=== PATIENT | female | born 1930 | race Caucasian/White ===

== ENCOUNTER 2016-09-12 06:22 | Emergency (ER) | payer MEDICARE ==
[~2016-09-12] VITALS: Ht 157.5 cm; Wt 69.1 kg
[~2016-09-12 06:22] MED LIST: ACET500T3 PO; AMLO5TAB2 PO; CYAN1000P IM; FURO1TAB62 PO; LEVO.1 PO; LORA-475 PO; METO50TA PO; MULT-6 PO; POTA-243 PO; PRAS10TA PO; PREV15CA15 PO; VITA200012 PO
[2016-09-12 06:54] VITALS: BP 135/76; PULSE 70; RESP 18; O2SAT 93
--- NOTE | 2016-09-12 07:25 | PD ---
HPI Chief Complaint: Pain: Acute or Chronic Time Seen by Provider: 07:17 Travel History International Travel<30 days: No Contact w/Intl Traveler<30days: No Traveled to known affect area: No History of Present Illness HPI This is an 86-year-old female who presents to the emergency department having fallen on August 28. She says she's been having some trouble with her gait over the past several months and sometimes she gets up too quickly and this causes her to fall. She came to the emergency department at that time because she was having some back pain and rib pain. She had an x-ray of her ribs as well as her femur which were reassuring and the patient had labs and was discharged home. She says that intermittently since then she's been having flareups of severe pain on the left side. She says last night it was keeping her up from sleep and she wasn't able to sleep without laying on her right side which is unusual for her. She says the pain is mostly in the left abdomen and underneath her ribs radiating to the back and sometimes crossing over and going down her right lower extremity. The pain is worse when she moves or walks. She does say she's been having frequent urination but denies any dysuria or fevers. She is concerned that she may have an internal injury. 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 MANJEET.) Appendectomy: Yes Cholecystectomy: Yes Eye Surgery: Yes (RIGHT CATARACT EXTRACT) Genitourinary Surgery: Yes (RENAL STENT ) Gynecologic Surgery: Yes (UTERINE SUSPENSION 1956) Pacemaker: No Other Surgery: Yes (CARDIAC STENTS 10 UTERINE SUSPENSION APPENDECTOMY CHOLESTECTOMY) Social History Alcohol Use: Yes (1-2 drinks daily) Tobacco Use: No Substance Use: No Allergies-Medications (Allergen,Severity, Reaction): Coded Allergies: Iodine (Verified Allergy, Unknown, 09/12/16) Prednisone (Verified Adverse Reaction, Severe, ANXIETY, 09/12/16) Uncoded Allergies: ANTIDEPRESSANTS (Adverse Reaction, Unknown, 02/12/14) Reported Meds & Prescriptions Reported Meds & Active Scripts Active Acetaminophen 500 Mg Tab 500 Mg PO Q6H PRN Reported Centrum (Multiple Vitamins W/ Minerals) 1 Tab 1 Tab PO DAILY Ativan (Lorazepam) 2 Mg Tab 2 Mg PO HS Prevacid (Lansoprazole) 15 Mg Capdr 15 Mg PO DAILY Klor-Con 10 (Potassium Chloride) 10 Meq Tab 10 Meq PO EVERY OTHER DAY PRN Lasix (Furosemide) 20 Mg Tab 20 Mg PO EVERY OTHER DAY PRN Synthroid (Levothyroxine Sodium) 100 Mcg Tab 100 Mcg PO DAILY BRAND MEDICALLY NECESSARY Effient (Prasugrel) 10 Mg Tab 10 Mg PO DAILY Metoprolol Tartrate 50 Mg Tab 50 Mg PO BID Amlodipine (Amlodipine Besylate) 5 Mg Tab 5 Mg PO DAILY Review of Systems Except as stated in HPI: all other systems reviewed are Neg Physical Exam Narrative GENERAL:Well appearing, no acute distress SKIN: Warm and dry. HEAD: Atraumatic. Normocephalic. EYES: Pupils equal and round. No injection or drainage. ENT: Moist mucous membranes NECK: Trachea midline. CARDIOVASCULAR: Regular rate and rhythm. No murmur appreciated. RESPIRATORY: Clear to auscultation. Breath sounds equal bilaterally. GASTROINTESTINAL: Abdomen soft, tender to palpation in the left upper and left lower quadrants with no rebound or guarding. MUSCULOSKELETAL: No obvious deformities. Painless range of motion of both hips. No focal thoracic or lumbar tenderness. NEUROLOGICAL: Awake and alert. No obvious cranial nerve deficits. Moving all extremities. PSYCHIATRIC: Appropriate mood and affect; insight and judgment normal. Data Data Last Documented VS Vital Signs Date Time Temp Pulse Resp B/P Pulse Ox O2 Delivery O2 Flow Rate FiO2 09/12/16 06:54 70 18 135/76 93 Room Air Orders Complete Blood Count With Diff (09/12/16 07:17) Basic Metabolic Panel (Bmp) (09/12/16 07:17) Urinalysis - C+S If Indicated (09/12/16 07:17) Ct Thorax/ Chest Wo Iv Contras (09/12/16 ) Ct Abd/Pel W/O Iv Contrast (09/12/16 ) Labs Laboratory Tests Test 09/12/16 07:35 White Blood Count 5.6 TH/MM3 Red Blood Count 5.47 MIL/MM3 Hemoglobin 15.3 GM/DL Hematocrit 46.2 % Mean Corpuscular Volume 84.4 FL Mean Corpuscular Hemoglobin 28.0 PG Mean Corpuscular Hemoglobin 33.1 % Concent Red Cell Distribution Width 13.9 % Platelet Count 228 TH/MM3 Mean Platelet Volume 7.8 FL Neutrophils (%) (Auto) 54.6 % Lymphocytes (%) (Auto) 31.1 % Monocytes (%) (Auto) 10.0 % Eosinophils (%) (Auto) 3.5 % Basophils (%) (Auto) 0.8 % Neutrophils # (Auto) 3.1 TH/MM3 Lymphocytes # (Auto) 1.7 TH/MM3 Monocytes # (Auto) 0.6 TH/MM3 Eosinophils # (Auto) 0.2 TH/MM3 Basophils # (Auto) 0.0 TH/MM3 CBC Comment DIFF FINAL Differential Comment Urine Color LIGHT-YELLOW Urine Turbidity CLEAR Urine pH 7.5 Urine Specific [place] 1.005 Urine Protein NEG mg/dL Urine Glucose (UA) NEG mg/dL Urine Ketones NEG mg/dL Urine Occult Blood NEG Urine Nitrite NEG Urine Bilirubin NEG Urine Urobilinogen LESS THAN 2.0 MG/DL Urine Leukocyte Esterase NEG Urine RBC 1 /hpf Urine WBC 3 /hpf Urine Squamous Epithelial <1 /hpf Cells Microscopic Urinalysis Comment CULT NOT INDICATED Sodium Level 143 MEQ/L Potassium Level 3.7 MEQ/L Chloride Level 107 MEQ/L Carbon Dioxide Level 25.8 MEQ/L Anion Gap 10 MEQ/L Blood Urea Nitrogen 10 MG/DL Creatinine 0.94 MG/DL Estimat Glomerular Filtration 56 ML/MIN Rate Random Glucose 100 MG/DL Calcium Level 8.9 MG/DL [facility] Medical Decision Making Medical Screen Exam Complete: Yes Emergency Medical Condition: Yes Interpretation(s) No tachycardia, normotensive No leukocytosis Electrolytes within normal limits Urinalysis: No infection CT of the chest and abdomen pelvis demonstrates no obvious compression fracture , no displaced rib fracture and no other etiology of the patient's pain Differential Diagnosis Rib fracture, pneumothorax, compression fracture, splenic laceration, abdominal wall contusion Narrative Course This is an 86-year-old female who presents to the emergency department with pain on her left side ever since a fall over a week ago. She was placed on a monitor and an IV was established. Labs are obtained which were all reassuring including a normal urinalysis. Given the vague description of the patient's symptoms a CT of the chest abdomen pelvis was obtained which is all reassuring. She does have diffuse advanced osteopenia of the vertebrae and perhaps this is the etiology of some of her symptoms. Patient was discharged home with tramadol and asked to follow-up with a primary care physician. Diagnosis Primary Impression: Osteopenia Additional Impression: Back pain Qualified Code: M54.9 - Other acute back pain Additional Instructions: If you develop weakness of her legs, difficulty walking, numbness of your legs or your genital or rectal area, loss of your bowel or bladder, or difficulty urinating return to the emergency department immediately. Followup with your primary care physician in one week if your symptoms have not improved. Med/Other Pt SpecificInfo: Prescription(s) given Scripts Tramadol 50 Mg Tab50 Mg PO Q6H PRN (PAIN) #15 TAB Ref 0 Prov:Aisha Zavala MD 09/12/16 Disposition: 01 DISCHARGE HOME Condition: Stable Aisha Zavala MD Sep 12, 2016 07:25
[2016-09-12 07:52] LABS: AUTOMATED NEUTROPHIL # 3.1 TH/MM3 (1.8-7.7); BASOPHIL % 0.8 % (0.0-2.0); EOSINOPHIL # 0.2 TH/MM3 (0-0.4); EOSINOPHIL % 3.5 % (0.0-4.0); HEMATOCRIT 46.2 % (35.0-46.0); HEMO FLAGS DIFF FINAL; LYMPH % 31.1 % (9.0-44.0); LYMPHOCYTE # 1.7 TH/MM3 (1.0-4.8); MEAN CELL VOLUME 84.4 FL (80.0-100.0); MEAN CORPUSCULAR HGB CONC 33.1 % (32.0-36.0); NEUT % 54.6 % (16.0-70.0); PLATELET COUNT 228 TH/MM3 (150-450); RED BLOOD COUNT 5.47 MIL/MM3 (4.00-5.30); RED CELL DISTRIBUTION WIDTH 13.9 % (11.6-17.2); WHITE BLOOD COUNT 5.6 TH/MM3 (4.0-11.0)
[2016-09-12 08:02] LABS: BLOOD, URINE NEG (NEG); COMMENT (UR) CULT NOT INDICATED; CULTURE IF INDICATED CULT NOT INDICATED; GLUCOSE,URINE NEG (NEG); KETONE, URINE NEG (NEG); NITRITE,URINE NEG (NEG); PH, URINE 7.5 (5.0-8.5); SQUAMOUS EPITHELIAL CELL URINE <1 /hpf (0-5); URINE COLOR LIGHT-YELLOW (YELLW/STRAW)
[2016-09-12 08:21] LABS: BICARBONATE 25.8 MEQ/L (21.0-32.0); POTASSIUM 3.7 MEQ/L (3.5-5.1)
--- NOTE | 2016-09-12 08:33 | RADRPT ---
EXAM DATE/TIME: 09/12/2016 07:35 [facility] COMPARISON: No previous studies available for comparison. INDICATIONS: Patient fell last night, complains of left side pain RADIATION DOSE: 16.31 CTDIvol (mGy); Combined studies - Thorax/Abdomen/Pelvis MEDICAL HISTORY: Cardiovascular disease. Hypertension. SURGICAL HISTORY: Appendectomy. Cholecystectomy. ENCOUNTER: Initial ACUITY: 1 day PAIN SCALE: 4/10 LOCATION: Left ribs TECHNIQUE: Volumetric scanning of the chest was performed. Using automated exposure control and adjustment of t he mA and/or kV according to patient size, radiation dose was kept as low as reasonably achievable to obtain optimal diagnostic quality images. FINDINGS: There is no pneumothorax. There is marked coronary artery calcifications with a large hiatal hernia evident. I do not see a displaced rib fracture although osteopenia makes detection of such difficult. There is no axillary adenopathy. There is no mediastinal adenopathy. CONCLUSION: Compensated cardiomegaly. There is no evidence for pneumothorax. I do not see a displaced rib fracture . Angel Luis Frias MD FACR on September 12, 2016 at 8:25 Board Certified Radiologist. This report was verified electronically.
--- NOTE | 2016-09-12 08:36 | RADRPT ---
EXAM DATE/TIME: 09/12/2016 07:35 [facility] COMPARISON: No previous studies available for comparison. INDICATIONS: Patient fell last night and complains of left rib pain ORAL CONTRAST: No oral contrast ingested. RADIATION DOSE: 16.31 CTDIvol (mGy) ; Combined studies - Thorax/Abdomen/Pelvis MEDICAL HISTORY: Hypertension. Cardiovascular disease SURGICAL HISTORY: Appendectomy. Cholecystectomy. ENCOUNTER: Initial ACUITY: 1 day PAIN SCALE: 4/10 LOCATION: Left ribs TECHNIQUE: Volumetric scanning of the abdomen and pelvis was performed. Using automated exposure control and ad justment of the mA and/or kV according to patient size, radiation dose was kept as low as reasonably achievable to obtain optimal diagnostic quality images. FINDINGS: Again seen is the large hiatal hernia. Liver, spleen, pancreas and adrenal glands are unremarkable. Right and left kidneys appear normal. Pelvic contents unremarkable. Review of bone windows reveals diffuse osteopenia. Lucencies are seen in the thoracic and lumbar spi ne, they are probably aggressive osteopenia. I think a metastatic process would be a much more remote conside ration. There is no evidence for a fracture. CONCLUSION: I see no evidence for an acute traumatic injury. 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 Angel Luis Frias MD FACR on September 12, 2016 at 8:26 Board Certified Radiologist. This report was verified electronically.
[2016-09-12] MEDS ORDERED: TRAM50TA PO (08:51)
== END 2016-09-12 09:53 | disposition home or self-care (01) ==
LOC: NEPE 06:22
DX: M19.90 Unspecified osteoarthritis, unspecified site (principal); M54.9 Dorsalgia, unspecified; E78.00 Pure hypercholesterolemia, unspecified; I25.10 Atherosclerotic heart disease of native coronary artery without angina pectoris; K21.9 Gastro-esophageal reflux disease without esophagitis; I10 Essential (primary) hypertension; E03.9 Hypothyroidism, unspecified
CPT/HCPCS: 71250; 74176; 80048; 81001; 85025

== ENCOUNTER 2016-11-21 14:51 | Emergency (ER) | payer MEDICARE ==
[~2016-11-21] VITALS: Ht 157.5 cm; Wt 68.0 kg
[~2016-11-21 14:51] MED LIST changes: -CYAN1000P IM; +TRAM50TA PO; -VITA200012 PO
[2016-11-21 14:54] VITALS: BP 204/95; PULSE 85; RESP 16; TEMP 98.2; O2SAT 97
--- NOTE | 2016-11-21 16:10 | PD ---
HPI Chief Complaint: Fall Time Seen by Provider: 16:00 Travel History International Travel<30 days: No Contact w/Intl Traveler<30days: No Traveled to known affect area: No History of Present Illness HPI 86-year-old female on Plavix presents for evaluation after fall. She reports that yesterday she was sitting barstool when she got her feet tangled in the legs of the barstool and fell, landing on her right side. She doesn't believe that she lost consciousness. She is complaining of right periorbital bruising and right temporal bruising and soft tissue swelling, pain. She also has pain in the lateral right rib cage which is aching and worse with movement or inspiration. Slight neck pain. Denies nausea or vomiting, abdominal pain, injury to the extremities, confusion or amnesia. Denies blurred vision. No other complaints. 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 MANJEET.) Appendectomy: Yes Cholecystectomy: Yes Eye Surgery: Yes (RIGHT CATARACT EXTRACT) Genitourinary Surgery: Yes (RENAL STENT ) Gynecologic Surgery: Yes (UTERINE SUSPENSION 1956) Pacemaker: No Other Surgery: Yes (CARDIAC STENTS 10 UTERINE SUSPENSION APPENDECTOMY CHOLESTECTOMY) Social History Alcohol Use: Yes (1-2 drinks daily) Tobacco Use: No Substance Use: No Allergies-Medications (Allergen,Severity, Reaction): Coded Allergies: Iodine (Verified Allergy, Unknown, 11/21/16) Prednisone (Verified Adverse Reaction, Severe, ANXIETY, 11/21/16) Uncoded Allergies: ANTIDEPRESSANTS (Adverse Reaction, Unknown, 02/12/14) Reported Meds & Prescriptions Reported Meds & Active Scripts Active Tylenol-Codeine #3 (Acetaminophen-Codeine) 300-30 mg Tab 1 Tab PO Q4H PRN Reported Probiotic (Lactobacillus Acidophilus) 1 Cap Cap 1 Cap PO DAILY Soma (Carisoprodol) 350 Mg Tab 350 Mg PO DAILY PRN Vitamin D3 (Cholecalciferol) 2,000 Unit Tab 2,000 Units PO AC DINNER Plavix (Clopidogrel Bisulfate) 75 Mg Tab 75 Mg PO DAILY Centrum (Multiple Vitamins W/ Minerals) 1 Tab 1 Tab PO DAILY Ativan (Lorazepam) 2 Mg Tab 2 Mg PO HS Prevacid (Lansoprazole) 15 Mg Capdr 15 Mg PO DAILY Klor-Con 10 (Potassium Chloride) 10 Meq Tab 10 Meq PO EVERY OTHER DAY PRN Lasix (Furosemide) 20 Mg Tab 20 Mg PO EVERY OTHER DAY PRN Synthroid (Levothyroxine Sodium) 100 Mcg Tab 100 Mcg PO DAILY BRAND MEDICALLY NECESSARY Metoprolol Tartrate 50 Mg Tab 50 Mg PO BID Amlodipine (Amlodipine Besylate) 5 Mg Tab 5 Mg PO DAILY Review of Systems Except as stated in HPI: all other systems reviewed are Neg Physical Exam Narrative GENERAL: Well-developed well-nourished female in no acute distress, conversing normally SKIN: Warm and dry. There is some bruising around the right periorbital region as well as the right caodaism. Some tenderness to palpation. No bony step-offs. HEAD: Atraumatic. Normocephalic. EYES: Pupils equal and round reactive to light extraocular muscles are intact. There is no proptosis or hyphema. ENT: No nasal bleeding or discharge. Mucous membranes pink and moist. NECK: Trachea midline. No JVD. CARDIOVASCULAR: Regular rate and rhythm. No murmur appreciated. RESPIRATORY: No accessory muscle use. Clear to auscultation. Breath sounds equal bilaterally. GASTROINTESTINAL: Abdomen soft, non-tender, nondistended. Hepatic and splenic margins not palpable. MUSCULOSKELETAL: No obvious deformities. Some tenderness to palpation to lateral right rib cage. No crepitus. NEUROLOGICAL: Awake and alert. No obvious cranial nerve deficits. Motor grossly within normal limits. Normal speech. Data Data Last Documented VS Vital Signs Date Time Temp Pulse Resp B/P Pulse Ox O2 Delivery O2 Flow Rate FiO2 11/21/16 17:40 75 16 172/79 95 Room Air 11/21/16 14:54 98.2 Orders Complete Blood Count With Diff (11/21/16 16:06) Basic Metabolic Panel (Bmp) (11/21/16 16:06) Ct Brain W/O Iv Contrast(Rout) (11/21/16 ) Ct Facial Bones W/O Iv Cont (11/21/16 ) Ribs, Uni (W/Exp Cxr-Min 3vw) (11/21/16 ) Electrocardiogram (11/21/16 ) Ct Cerv Spine W/O Contrast (11/21/16 ) Iv Access Insert/Monitor (11/21/16 16:06) Morphine Inj (Morphine Inj) (11/21/16 16:15) Ondansetron Inj (Zofran Inj) (11/21/16 16:15) Potassium Chloride (Kcl) (11/21/16 18:30) Labs Laboratory Tests Test 11/21/16 17:25 White Blood Count 8.5 TH/MM3 Red Blood Count 5.52 MIL/MM3 Hemoglobin 15.0 GM/DL Hematocrit 45.2 % Mean Corpuscular Volume 82.0 FL Mean Corpuscular Hemoglobin 27.2 PG Mean Corpuscular Hemoglobin 33.1 % Concent Red Cell Distribution Width 16.2 % Platelet Count 209 TH/MM3 Mean Platelet Volume 8.1 FL Neutrophils (%) (Auto) 57.5 % Lymphocytes (%) (Auto) 29.1 % Monocytes (%) (Auto) 11.4 % Eosinophils (%) (Auto) 1.3 % Basophils (%) (Auto) 0.7 % Neutrophils # (Auto) 4.9 TH/MM3 Lymphocytes # (Auto) 2.5 TH/MM3 Monocytes # (Auto) 1.0 TH/MM3 Eosinophils # (Auto) 0.1 TH/MM3 Basophils # (Auto) 0.1 TH/MM3 CBC Comment DIFF FINAL Differential Comment Sodium Level 145 MEQ/L Potassium Level 3.2 MEQ/L Chloride Level 109 MEQ/L Carbon Dioxide Level 24.6 MEQ/L Anion Gap 11 MEQ/L Blood Urea Nitrogen 9 MG/DL Creatinine 0.87 MG/DL Estimat Glomerular Filtration 62 ML/MIN Rate Random Glucose 89 MG/DL Calcium Level 8.7 MG/DL MDM Medical Decision Making Medical Screen Exam Complete: Yes Emergency Medical Condition: Yes Medical Record Reviewed: Yes Interpretation(s) CBC unremarkable BMP potassium 3.2 Differential Diagnosis Rib fracture, contusion, pneumothorax, hemothorax, retroperitoneal hematoma, intra-abdominal injury, orbital fracture, retrobulbar hematoma, intracranial hemorrhage Narrative Course 86-year-old female presents after a fall yesterday with right-sided rib cage pain and right-sided periorbital bruising and temporal bruising and mild headache. CT of the brain, cervical spine and facial bones have been ordered. Rib x-ray, basic lab work on EKG been ordered. She'll be given a small dose of morphine. Imaging studies reveals soft tissue swelling, no fracture. The patient will be given an incentive spirometer as well as Tylenol with Codeine for pain. She is stable for discharge. Procedures EKG Prior to Arrival: Yes Diagnosis Primary Impression: Rib contusion Qualified Code: S20.211A - Rib contusion, right, initial encounter Additional Impression: Facial contusion Qualified Code: S00.83XA - Facial contusion, initial encounter Additional Instructions: Ice pack several times a day 10-15 minutes at a time to the affected area. Use the incentive sprawling or 10 times an hour while awake. Take medication as needed for pain. Do not drive or drink alcohol when taking this medication. Follow-up with primary care physician and return for any acutely new or worsening symptoms. Med/Other Pt SpecificInfo: Prescription(s) given Scripts Acetaminophen-Codeine (Tylenol-Codeine #3)300-30 mg Tab1 Tab PO Q4H PRN (PAIN) # 15 TAB Ref 0 Prov:Arjun Ruby MD 11/21/16 Disposition: 01 DISCHARGE HOME Condition: Stable Tanner Kathleen Nov 21, 2016 16:10
[2016-11-21] MEDS ORDERED: MORPHINE SULFATE 4 MG/ML INJ IV PUSH ONE (16:15)
[2016-11-21] MEDS ORDERED: ONDANSETRON HCL 4 MG/2 ML VIAL IV PUSH ONE (16:15)
--- NOTE | 2016-11-21 16:54 | PD ---
Data Data Last Documented VS Vital Signs Date Time Temp Pulse Resp B/P Pulse Ox O2 Delivery O2 Flow Rate FiO2 11/21/16 14:54 98.2 85 16 204/95 97 Room Air Orders Complete Blood Count With Diff (11/21/16 16:06) Basic Metabolic Panel (Bmp) (11/21/16 16:06) Ct Brain W/O Iv Contrast(Rout) (11/21/16 ) Ct Facial Bones W/O Iv Cont (11/21/16 ) Ribs, Uni (W/Exp Cxr-Min 3vw) (11/21/16 ) Electrocardiogram (11/21/16 ) Ct Cerv Spine W/O Contrast (11/21/16 ) Iv Access Insert/Monitor (11/21/16 16:06) Morphine Inj (Morphine Inj) (11/21/16 16:15) Ondansetron Inj (Zofran Inj) (11/21/16 16:15) MDM Supervised Visit with YOLANDA: Yes Narrative Course The history, exam, and medical decision-making in the associated mid-level provider note were completed with my assistance. I reviewed and agree with the findings presented. I attest that I had a [id number] encounter with the patient on the same day, and personally performed and documented my assessment and findings in the medical record. *My assessment and Findings: 86-year-old woman with fall stool. Possibly syncope and collapse but doesn't seem like it. She is not 100% sure. His happened yesterday. She is otherwise well. She has some right rib cage pain. We'll check labs. Hemant Clark MD Nov 21, 2016 16:54
--- NOTE | 2016-11-21 16:55 | RADRPT ---
EXAM DATE/TIME: 11/21/2016 16:39 [facility] COMPARISON: CT THORAX W/O CONTRAST, September 12, 2016, 7:35. INDICATIONS : Right rib pain after fall. MEDICAL HISTORY : Myocardial infarction. SURGICAL HISTORY : Coronary artery stent. ENCOUNTER: Initial ACUITY: 2 days PAIN SCORE: 8/10 LOCATION: Right ribs. FINDINGS: The heart size is enlarged. There is increased density in the retrocardiac area. This is likely sec ondary to a large hiatal hernia. An acute rib fracture is not seen. There is degenerative change in the spine. CONCLUSION: Large hiatal hernia. An acute rib fracture is not seen. Prudencio Chaves MD on November 21, 2016 at 16:47 Board Certified Radiologist. This report was verified electronically.
--- NOTE | 2016-11-21 17:30 | RADRPT ---
EXAM DATE/TIME: 11/21/2016 16:58 [facility] COMPARISON: No previous studies available for comparison. INDICATIONS : Fall. Right sided head and facial trauma. RADIATION DOSE: 69.15 CTDIvol (mGy) MEDICAL HISTORY : Hypertension. SURGICAL HISTORY : None. ENCOUNTER: Initial ACUITY: 2 days PAIN SCALE: 7/10 LOCATION: Right cranial TECHNIQUE: Multiple contiguous axial images were obtained of the head. Using automated exposure control and adj ustment of the mA and/or kV according to patient size, radiation dose was kept as low as reasonably a chievable to obtain optimal diagnostic quality images. FINDINGS: CEREBRUM: The ventricles and cortical sulci are widened. There is decreased density in the cerebral white matte r. No evidence of midline shift, mass lesion, hemorrhage or acute infarction. No extra-axial fluid collections are seen. POSTERIOR FOSSA: The cerebellum and brainstem are intact. The 4th ventricle is midline. The cerebellopontine angle i s unremarkable. EXTRACRANIAL: There is a right frontal scalp hematoma. There is right periorbital soft tissue swelling. SKULL: The calvaria is intact. No evidence of skull fracture. CONCLUSION: 1. No acute intracranial abnormality is seen. 2. Age-related atrophy and suspected small vessel ischemic change in the white matter. 3. Right frontal scalp and right periorbital soft tissue swelling. Prudencio Chaves MD on November 21, 2016 at 17:27 Board Certified Radiologist. This report was verified electronically.
--- NOTE | 2016-11-21 17:34 | RADRPT ---
EXAM DATE/TIME: 11/21/2016 16:58 [facility] COMPARISON: No previous studies available for comparison. INDICATIONS : Fall. Right sided head and facial trauma. RADIATION DOSE: 23.34 CTDIvol (mGy) MEDICAL HISTORY : Hypertension. SURGICAL HISTORY : None. ENCOUNTER: Initial ACUITY: 2 days PAIN SCALE: 6/10 LOCATION: Right neck TECHNIQUE: Volumetric scanning of the cervical spine was performed. Multiplanar reconstructions in the sagittal, coronal and oblique axial planes were performed. Using automated exposure control and adjustment o f the mA and/or kV according to patient size, radiation dose was kept as low as reasonably achievable to obtain optimal diagnostic quality images. FINDINGS: VERTEBRAE: Normal vertebral body height. ALIGNMENT: There is 2 mm of anterior subluxation of C5 on C6. C2-C3: The bony spinal canal is normal in size. No evidence of disc bulge or herniation. The neural forami na are bilaterally patent. There is bilateral facet hypertrophy. C3-C4: The bony spinal canal is normal in size. No evidence of disc bulge or herniation. The neural forami na are bilaterally patent. There is bilateral facet hypertrophy. C4-C5: The bony spinal canal is normal in size. No evidence of disc bulge or herniation. The neural forami na are bilaterally patent. There is bilateral facet hypertrophy. C5-C6: The bony spinal canal is normal in size. No evidence of disc bulge or herniation. The neural forami na are bilaterally patent. There is bilateral facet hypertrophy. C6-C7: The disc demonstrates decreased height. There is endplate sclerosis. A significant impression on the thecal sac is not seen. There is uncovertebral hypertrophy and facet hypertrophy. The neural foramina are bilaterally patent. C7-T1: The bony spinal canal is normal in size. No evidence of disc bulge or herniation. The neural forami na are bilaterally patent. CONCLUSION: Degenerative change. No acute bony abnormality is seen. Prudencio Chaves MD on November 21, 2016 at 17:29 Board Certified Radiologist. This report was verified electronically.
--- NOTE | 2016-11-21 17:37 | RADRPT ---
EXAM DATE/TIME: 11/21/2016 17:01 [place] COMPARISON: No previous studies available for comparison. INDICATIONS : Fall. Right sided head and facial trauma. RADIATION DOSE: 36.81 CTDIvol (mGy) MEDICAL HISTORY : Hypertension. SURGICAL HISTORY : None. ENCOUNTER: Initial ACUITY: 2 days PAIN SCORE: 7/10 LOCATION: Right facial TECHNIQUE: Volumetric scanning of the facial bones was performed. Using automated exposure control and adjustme nt of the mA and/or kV according to patient size, radiation dose was kept as low as reasonably achiev able to obtain optimal diagnostic quality images. FINDINGS: ORBITS: The orbital and infraorbital osseous structures are intact. The retroconal structures have a normal configuration. No radiopaque foreign bodies are seen. NASAL BONE: The nasal bone and maxillary spine are intact ZYGOMATIC ARCHES: Symmetric without evidence of fracture. SINUSES: There is mild mucosal disease of the inferior aspects of the maxillary sinuses. The ethmoid and front al sinuses are intact. No air-fluid levels seen. NASAL CAVITY: The nasal septum is intact and midline. The lacrimal ducts are intact. SOFT TISSUES: There is right frontal scalp and right periorbital preseptal soft tissue swelling. INTRACRANIAL: No intracranial air seen. CRIBIFORM PLATE: Grossly intact. CONCLUSION: Right frontal scalp and periorbital soft tissue swelling. Prudencio Chaves MD on November 21, 2016 at 17:33 Board Certified Radiologist. This report was verified electronically.
[2016-11-21 17:40] VITALS: BP 172/79; PULSE 75; RESP 16; O2SAT 95
[2016-11-21 17:49] LABS: AUTOMATED NEUTROPHIL # 4.9 TH/MM3 (1.8-7.7); BASOPHIL # 0.1 TH/MM3 (0-0.2); BASOPHIL % 0.7 % (0.0-2.0); EOSINOPHIL # 0.1 TH/MM3 (0-0.4); EOSINOPHIL % 1.3 % (0.0-4.0); HEMATOCRIT 45.2 % (35.0-46.0); HEMO FLAGS DIFF FINAL; LYMPH % 29.1 % (9.0-44.0); LYMPHOCYTE # 2.5 TH/MM3 (1.0-4.8); MEAN CORPUSCULAR HEMOGLOBIN 27.2 PG (27.0-34.0); MEAN CORPUSCULAR HGB CONC 33.1 % (32.0-36.0); MONO % 11.4 % (0.0-8.0); NEUT % 57.5 % (16.0-70.0); PLATELET COUNT 209 TH/MM3 (150-450); RED BLOOD COUNT 5.52 MIL/MM3 (4.00-5.30); RED CELL DISTRIBUTION WIDTH 16.2 % (11.6-17.2); WHITE BLOOD COUNT 8.5 TH/MM3 (4.0-11.0)
[2016-11-21 18:01] LABS: BICARBONATE 24.6 MEQ/L (21.0-32.0); POTASSIUM 3.2 MEQ/L (3.5-5.1)
[2016-11-21] MEDS ORDERED: PLAV75TA29 PO (18:19)
[2016-11-21] MEDS ORDERED: VITA200012 PO (18:19)
[2016-11-21] MEDS ORDERED: SOMA350T PO (18:19)
[2016-11-21] MEDS ORDERED: LACTCAP8 PO (18:19)
[2016-11-21] MEDS ORDERED: TYLETAB34 PO (18:24)
[2016-11-21] MEDS ORDERED: POTASSIUM CHLORIDE 20 MEQ CONTROLLED RELEASE TAB PO ONE (18:30)
--- NOTE | 2016-11-22 14:04 | EKG ---
Date Performed: 11/21/2016 Time Performed: 15:26:41 PTAGE: 86 years EKG: Sinus rhythm BORDERLINE LEFT AXIS DEVIATION NONSPECIFIC T-WAVE ABNORMALITY BORDERLINE ECG PREVIOUS TRACING : 09/01/2016 13.30 DOCTOR: Carlitos Nam Interpretating Date/Time 11/22/2016 13:57:29
== END 2016-11-21 19:04 | disposition home or self-care (01) ==
LOC: NEPB 14:51
DX: S20.211A Contusion of right front wall of thorax, initial encounter (principal); W08.XXXA Fall from other furniture, initial encounter; Y93.89 Activity, other specified; Y92.9 Unspecified place or not applicable; Y99.9 Unspecified external cause status; E03.9 Hypothyroidism, unspecified; I25.2 Old myocardial infarction; I10 Essential (primary) hypertension; E78.00 Pure hypercholesterolemia, unspecified; M19.90 Unspecified osteoarthritis, unspecified site; Z95.818 Presence of other cardiac implants and grafts; Z95.9 Presence of cardiac and vascular implant and graft, unspecified
CPT/HCPCS: 70450; 70486; 71101; 72125; 80048; 85025; 93005; 96374; 96375; 99284; J2270; J2405

== ENCOUNTER 2018-07-22 13:38 | Observation (INO) ==
--- NOTE | 2018-07-22 14:03 | CT ---
EXAM DATE: 07/22/2018 1:56 PM EST AGE/SEX: 88 years / Female INDICATIONS: Stroke alert. CLINICAL DATA: This is the patient's initial encounter. Patient reports that signs and symptoms have been present for 1 day and indicates a pain score of 0/10. MEDICAL/SURGICAL HISTORY: Cardiovascular disease. Congestive heart failure. Hypertension. Coronar y artery stent. RADIATION DOSE: 56.21 CTDI (mGy) COMPARISON: [facility] [place], CT BRAIN W/O CONTRAST, 11/21/2016. . TECHNIQUE: CT of the head without contrast. Using automated exposure control and adjustment of the mA and/or kV according to patient size, radiation dose was kept as low as reasonably achievable to ob tain optimal diagnostic quality images. DICOM format image data is available electronically for revi ew and comparison. FINDINGS: Cerebrum: The ventricles are normal for age. No evidence of midline shift, mass lesion, hemorrhage or acute infarction. No extraaxial fluid collections are seen. Posterior Fossa: The cerebellum and brainstem are intact. The 4th ventricle is midline. The cerebe llopontine angle is unremarkable. Extracranial: The visualized portion of the orbits is intact. Skull: The calvaria is intact. No evidence of skull fracture. CONCLUSION: 1. No acute intracranial abnormality identified. Report was called by [Dr. Leon Frias to Dr. Heath at 1:59 PM ] Electronically signed by: Gordon Frias MD 07/22/2018 2:01 PM EST
[2018-07-22 14:06] LABS: Baso % (Auto) 0.4 % (0.0-2.0); Eos # (Auto) 0.1 th/mm3 (0.0-0.4); Eos % (Auto) 1.6 % (0.0-4.0); Hematocrit 54.6 % (35.0-46.0); Hemoglobin 18.4 gm/dL (11.6-15.3); Lymph # (Auto) 2.4 th/mm3 (1.0-4.8); Lymph % (Auto) 31.1 % (9.0-44.0); Mean Corpuscular HGB Conc 33.7 % (32.0-36.0); Mean Corpuscular Hemoglobin 31.2 pg (27.0-34.0); Mean Corpuscular Volume 92.7 fL (80.0-100.0); Mean Platelet Volume 8.3 fL (7.0-11.0); Mono # (Auto) 0.8 th/mm3 (0.0-0.9); Mono % (Auto) 10.3 % (0.0-8.0); Neut # (Auto) 4.5 th/mm3 (1.8-7.7); Neut % (Auto) 56.6 % (16.0-70.0); Platelet Count 242 th/mm3 (150-450); Red Blood Count 5.89 mil/mm3 (4.00-5.30); Red Cell Distribution Width 12.7 % (11.6-17.2); White Blood Count 7.8 th/mm3 (4.0-11.0)
[2018-07-22 14:14] LABS: Potassium 3.7 meq/L (3.5-5.1)
[2018-07-22 14:17] LABS: Calcium 8.9 mg/dL (8.5-10.1)
[2018-07-22 14:18] LABS: Carbon Dioxide 27.2 meq/L (21.0-32.0)
[2018-07-22 14:25] LABS: Troponin I 0.03 ng/mL (0.02-0.05)
[2018-07-22 14:32] LABS: Activated Partial Thrombo Time 26.8 sec (23.4-31.7); Prothrombin Time 10.2 sec (9.8-11.6)
--- NOTE | 2018-07-22 14:35 | XR ---
EXAM DATE: 07/22/2018 2:24 PM EST AGE/SEX: 88 years / Female INDICATIONS: Stroke alert. CLINICAL DATA: This is the patient's initial encounter. Patient reports that signs and symptoms have been present for 1 day and indicates a pain score of 0/10. MEDICAL/SURGICAL HISTORY: Cardiovascular disease. Congestive heart failure. Hypertension. Cor onary artery stent. COMPARISON: [facility], XR CHEST PA AND LAT, 11/26/2016. . FINDINGS: Single view thorax and surface mild cardiomegaly. There is ectasia thoracic aorta. The lungs demonstr ate chronic interstitial changes but are otherwise clear. The osseous structures are grossly intact. CONCLUSION: Chronic appearing interstitial changes in the pulmonary parenchyma. No acute abnormality identified. Electronically signed by: Gordon Frias MD 07/22/2018 2:34 PM EST
--- NOTE | 2018-07-22 14:38 | ED ---
HPI General Chief Complaint: Stroke Alert Stated Complaint: Stroke Alert Time Seen by Provider: 07/22/18 13:41 Source: patient and other (friend who witnessed the event) Mode of arrival: EMS Limitations: no limitations History of Present Illness Onset (ago): minute(s) Timing confirmed by: other (friend) Location: Reports left face and dysarthria History of same: No Severity: mild Relieving factors: time Exacerbating factors: none Context: Reports sudden onset On Anticoagulants: No Associated symptoms: Reports denies other symptoms Treatments Prior to Arrival: Reports none and other (She is on Plavix for coronary artery disease) Related Data Home Medications Medication Instructions Recorded Confirmed amlodipine 5 mg PO DAILY 07/22/18 07/22/18 cholecalciferol (vitamin D3) 2,000 unit PO DAILY 07/22/18 07/22/18 [Vitamin D3] clopidogrel [Plavix] 75 mg PO DAILY 07/22/18 07/22/18 furosemide 20 mg PO DAILY PRN 07/22/18 07/22/18 lansoprazole 15 mg PO DAILY 07/22/18 07/22/18 levothyroxine [Synthroid] 100 mcg PO DAILY 07/22/18 07/22/18 lorazepam 2 mg PO HS 07/22/18 07/22/18 metoprolol tartrate 75 mg PO BID 07/22/18 07/22/18 multivitamin [Multiple Vitamins] 1 tab PO DAILY 07/22/18 07/22/18 potassium chloride [Klor-Con 10] 10 meq PO DAILY 07/22/18 07/22/18 Allergies Allergy/AdvReac Type Severity Reaction Status Date / Time iodine Allergy Unknown Shortness Verified 07/22/18 14:40 of Breath potassium iodide Allergy Unknown Shortness Verified 07/22/18 14:40 of Breath povidone-iodine Allergy Unknown Shortness Verified 07/22/18 14:40 of Breath sodium iodide Allergy Unknown Shortness Verified 07/22/18 14:40 of Breath sodium iodide Allergy Unknown Shortness Verified 07/22/18 14:40 of Breath prednisone AdvReac Severe ANXIETY Verified 07/22/18 14:40 ANTIDEPRESSANTS AdvReac Unknown Depression Uncoded 07/21/18 09:48 Review of Systems ROS: all other systems reviewed are negative [facility] Medical History Medical History Afib (Acute) Arthritis (Acute) CAD (coronary artery disease) (Acute) CHF (congestive heart failure) (Acute) Paola's disease (Acute) Hypertension (Acute) Sleep apnea (Acute) Surgical History Surgical History H/O angioplasty (Acute) H/O heart artery stent (Acute) Social History Social History Substance History: No History of Abuse Second Hand Smoke Exposure: No Smoking Status: Former smoker Tobacco Type: Cigarettes How Often Do You Have a Drink Containing Alcohol: 2 to 3 times a week Recent Travel in [facility] within the Last 8 Weeks: No Recent Out of Country Travel within the Last 8 Weeks: No Immunization History Tetanus Immunization: <5 Years Exam Const General: cooperative, healthy appearing and comfortable Orientation: alert, awake and oriented x3 HENMT Head: normal to inspection, normocephalic and atraumatic Eyes Alignment and Position: alignment normal Conjunctivae: conjunctivae normal Sclera: sclerae normal EOM: EOM intact bilaterally Neck Neck: normal visual inspection, no lymphadenopathy and no meningeal signs Chest Chest: normal inspection of the chest Resp Effort & Inspection: normal respiratory effort and able to speak in complete sentences Auscultation: clear to auscultation bilaterally Cardio Rate: regular rate Rhythm: regular rhythm Back/Spine/Pelvis Cervical Spine: cervical ROM normal Thoracic/Lumbar Spine: thoraco-lumbar ROM normal Skin General: no rashes or lesions noted, turgor normal and dry skin Neuro General: alert, awake, oriented x3, moves all extremities and CN's II-XI intact bilaterally Cranial Nerves: PERRL, EOM intact bilaterally, facial strength normal and tongue midline Cognition: normal cognition Speech: speech normal Motor: muscle tone normal throughout and strength 5/5 throughout Coordination: [id number] test normal and [id number] test normal Extrem General: normal to inspection and full ROM Psych Appearance: grossly normal Mental Status: mental status grossly normal Speech and Movement: speech and movement normal Mood: congruent mood Affect: normal affect Attitude: cooperative Thought Process: normal Thought Content: normal Judgment: judgment good Course Consultations Consultation #1: Dr. Steele Consultation #2: Dr. Scott Initial Documented Vital Signs Temperature 98.7 F 07/22/18 13:38 Pulse Rate 74 07/22/18 13:38 Respiratory Rate 18 07/22/18 13:38 Blood Pressure 167/88 H 07/22/18 13:38 Pulse Oximetry 95 07/22/18 13:38 Last Documented Vital Signs Temperature 98.7 F 07/22/18 13:38 Pulse Rate 70 07/22/18 14:26 Respiratory Rate 18 07/22/18 13:38 Blood Pressure 167/88 H 07/22/18 13:38 Pulse Oximetry 98 07/22/18 14:27 Critical Care Time Critical Care Time: Yes Total Critical Care Time: 45 Attestation: Time to perform other separately billable procedures was not included in the critical care time. My time did not include minutes spent treating any other patients simultaneously or on activities that did not directly contribute to the patient's treatment. The services I provided to this patient were to treat and/or prevent clinically significant deterioration due to stroke alert I provided critical care services requiring my management, as noted below: Chart data review, documentation time, medication orders and management, vital sign assessments/reviewing monitor data, ordering and reviewing lab tests, ordering and interpreting/reviewing x-rays and diagnostic studies, care of the patient and discussion of the patient with the admitting physicians NIH Stroke Scale NIH Stroke Scale Level of Consciousness: 0-Alert Orientation Questions: 0-Answers both correct Responds to Commands: 0-Both tasks correct Gaze Eye Movement: 0-Horizontal movement WNL Visual [place]: 0-No visual field defect Facial Movement: 0-Normal Motor Functions Arm LEFT: 0-No drift Motor Functions Arm RIGHT: 0-No drift Motor Functions Leg LEFT: 0-No drift Motor Functions Leg RIGHT: 0-No drift Limb Ataxia: 0-No ataxia Sensory Loss: 0-No sensory loss Best Language: 0-Normal Articulation: 0-Normal Extinction or Inattention Sensory: 0-Absent Total: 0 Quality Measure Queries Stroke Last date observed well: 07/22/18 Last time observed well: 12:30 Symptom Onset Unknown: No Medical Decision Making MDM Narrative Medical decision making narrative: This patient presents as a stroke alert. Her symptoms have completely resolved at presentation. She is able to give me her own history. She is here with a friend who witnessed the event and is able to corroborate the history. She had the onset of left facial droop and dysarthria shortly prior to arrival. [facility] was called. By the time [facility] arrived on the scene, her symptoms have completely resolved. However, they witnessed a recurrence of the symptoms. They state that the symptoms lasted about 2 minutes. Stroke alert was activated. She has been taking emergently to CT. CT scan is negative. Dr. Steele was consulted and has interviewed the patient via telemedicine. His recommendations are to add an MRI of the brain, MRA of the brain, carotid ultrasound, echo, lipid panel. He has advised that the patient should be left lying flat for 12 hours. All of these have been ordered. She needs to be admitted to observation. Medical Screen Exam Complete: Yes Emergency Medical Condition: Yes Lab Data Result diagrams: 07/22/18 13:20 07/22/18 13:20 Lab Results 07/22/18 07/22/18 07/22/18 Range/Units 13:20 13:20 13:20 CBC w Diff Auto diff final WBC 7.8 (4.0-11.0) th/mm3 RBC 5.89 H (4.00-5.30) mil/mm3 Hgb 18.4 H (11.6-15.3) gm/dL Hct 54.6 H (35.0-46.0) % MCV 92.7 (80.0-100.0) fL MCH 31.2 (27.0-34.0) pg MCHC 33.7 (32.0-36.0) % RDW 12.7 (11.6-17.2) % Plt Count 242 (150-450) th/mm3 MPV 8.3 (7.0-11.0) fL Neut % (Auto) 56.6 (16.0-70.0) % Lymph % (Auto) 31.1 (9.0-44.0) % [place] % (Auto) 10.3 H (0.0-8.0) % Eos % (Auto) 1.6 (0.0-4.0) % Baso % (Auto) 0.4 (0.0-2.0) % Neut # (Auto) 4.5 (1.8-7.7) th/mm3 Lymph # (Auto) 2.4 (1.0-4.8) th/mm3 [place] # (Auto) 0.8 (0.0-0.9) th/mm3 Eos # (Auto) 0.1 (0.0-0.4) th/mm3 Baso # (Auto) 0.0 (0.0-0.2) th/mm3 WBC Differential . Differential Comment . PT 10.2 (9.8-11.6) sec INR 1.0 Ratio APTT 26.8 (23.4-31.7) sec Fibrinogen 291 (227-377) mg/dL Sodium 139 (136-145) meq/L Potassium 3.7 (3.5-5.1) meq/L Chloride 103 (98-107) meq/L Carbon Dioxide 27.2 (21.0-32.0) meq/L Anion Gap 9 (5-15) meq/L BUN 16 (7-18) mg/dL Creatinine 0.96 (0.50-1.00) mg/dL Estimated GFR 55 L (>89) mL/min Random Glucose 102 (74-106) mg/dL Calcium 8.9 (8.5-10.1) mg/dL Total Creatine Kinase (26-192) U/L Troponin I (0.02-0.05) ng/mL Beta HCG, Quant (0-5) mIU/mL 07/22/18 Range/Units 13:20 CBC w Diff WBC (4.0-11.0) th/mm3 RBC (4.00-5.30) mil/mm3 Hgb (11.6-15.3) gm/dL Hct (35.0-46.0) % MCV (80.0-100.0) fL MCH (27.0-34.0) pg MCHC (32.0-36.0) % RDW (11.6-17.2) % Plt Count (150-450) th/mm3 MPV (7.0-11.0) fL Neut % (Auto) (16.0-70.0) % Lymph % (Auto) (9.0-44.0) % [place] % (Auto) (0.0-8.0) % Eos % (Auto) (0.0-4.0) % Baso % (Auto) (0.0-2.0) % Neut # (Auto) (1.8-7.7) th/mm3 Lymph # (Auto) (1.0-4.8) th/mm3 [place] # (Auto) (0.0-0.9) th/mm3 Eos # (Auto) (0.0-0.4) th/mm3 Baso # (Auto) (0.0-0.2) th/mm3 WBC Differential Differential Comment PT (9.8-11.6) sec INR Ratio APTT (23.4-31.7) sec Fibrinogen (227-377) mg/dL Sodium (136-145) meq/L Potassium (3.5-5.1) meq/L Chloride (98-107) meq/L Carbon Dioxide (21.0-32.0) meq/L Anion Gap (5-15) meq/L BUN (7-18) mg/dL Creatinine (0.50-1.00) mg/dL Estimated GFR (>89) mL/min Random Glucose (74-106) mg/dL Calcium (8.5-10.1) mg/dL Total Creatine Kinase 139 (26-192) U/L Troponin I 0.03 (0.02-0.05) ng/mL Beta HCG, Quant 6 H (0-5) mIU/mL Imaging Data Radiologist's impression: Chest X-Ray 07/22/18 13:42 CONCLUSION: Chronic appearing interstitial changes in the pulmonary parenchyma. No acute abnormality identified. Head CT 07/22/18 13:42 CONCLUSION: 1. No acute intracranial abnormality identified. Report was called by [Dr. Leon Frias to Dr. Heath at 1:59 PM ] Discharge Plan Discharge Disposition Patient Disposition: 30 Still Patient Discharge Details Diagnosis: Transient cerebral ischemia Physicians Team ED Provider: Irina Heath Primary Care Provider: Obdulia Junior Other Providers: Kemar Steele Rxs /Orders / Referrals /Forms Prescriptions: No Action multivitamin [Multiple Vitamins] Tablet 1 tab PO DAILY RF: 0 potassium chloride [Klor-Con 10] 10 mEq Tablet Extended Release 10 meq PO DAILY RF: 0 clopidogrel [Plavix] 75 mg Tablet 75 mg PO DAILY RF: 0 amlodipine 5 mg Tablet 5 mg PO DAILY RF: 0 levothyroxine [Synthroid] 100 mcg Tablet 100 mcg PO DAILY RF: 0 lorazepam 2 mg Tablet 2 mg PO HS RF: 0 furosemide 20 mg Tablet 20 mg PO DAILY PRN (Reason: Edema) RF: 0 lansoprazole 15 mg Tablet,Disintegrat, Delay Rel 15 mg PO DAILY RF: 0 cholecalciferol (vitamin D3) [Vitamin D3] 2,000 unit Tablet 2,000 unit PO DAILY RF: 0 metoprolol tartrate 75 mg Tablet 75 mg PO BID RF: 0 Status ED Status: With Doctor
[2018-07-22] MEDS: Sod Chloride 0.9% Inj 1,000 ML IV.CONT SCH (14:44)
[2018-07-22 14:49] LABS: Bilirubin,Urine Negative (Negative); Clarity,Urine Clear (Clear); Color,Urine Yellow (Yellw/Straw); Glucose,Urine (UA) Negative (Negative); Leukocyte Esterase,Urine Negative (Negative); Nitrite,Urine Negative (Negative); Urobilinogen,Urine 0.2 mg/dL (Less than 2)
[2018-07-22 14:55] LABS: Mucus,Urine Rare /lpf (Occasional); WBC,Urine 0-5 /hpf (0-5)
--- NOTE | 2018-07-22 14:55 | P.HPIM ---
History of Present Illness Primary Care Physician: Obdulia Junior MD History of Present Illness: This patient is an 88-year-old female with a diagnosis of coronary artery disease history of multiple stents in the past last one in 2014, hypertension, dyslipidemia, as per the patient she has a history of atrial fibrillation and was previously on Eliquis. The patient presents our facility this morning after she was found to have dysarthria as well as left-sided facial tingling. She also states she had some weakness of her left upper and left lower extremity. The patient was being visited by her neighbor who called for help then brought her to the emergency department for evaluation and care. The patient denies any chest pain, no shortness of breath, no palpitations, no abdominal pain, no fevers or chills. Past medical history coronary artery disease status post multiple stents, hypertension, dyslipidemia, history of atrial fibrillation Past surgical history cholecystectomy Family history significant for diabetes in her son Social history the patient smoked tobacco socially for nearly 20 years, she has not smoked tobacco for over 30 years. She drinks alcohol socially the patient denies any history of drug use Review of Systems All other systems reviewed negative except as stated in HPI [facility] - History History Provided By: Patient - Medical History Medical History: Medical History (Last Reviewed 07/22/18 @ 14:31 by Irina Heath) Afib Arthritis CAD (coronary artery disease) CHF (congestive heart failure) Paola's disease Hypertension Sleep apnea - Surgical History Surgical History: Surgical History (Last Reviewed 07/22/18 @ 14:31 by Irina Heath) H/O angioplasty H/O heart artery stent - Tobacco History Second Hand Smoke Exposure: No Tobacco Use In Past 30 Days: No Smoking Status: Former smoker Tobacco Type: Cigarettes - Alcohol History How Often Do You Have a Drink Containing Alcohol: 2 to 3 times a week - Substance Use History Substance History: No History of Abuse - Travel History Recent Travel in the [place] Within the Last 8 Weeks: No Recent Travel Out of the Country Within the Last 8 Weeks: No - Immunization History Tetanus Immunization: <5 Years Medications and Allergies Active Medications: Active Medications Sodium Chloride (Ns Inj) 1,000 mls @ 70 mls/hr IV.CONT .[id number] [facility] Last Admin: 07/22/18 14:44 Dose: 70 mls/hr Allergies Allergy/AdvReac Type Severity Reaction Status Date / Time iodine Allergy Unknown Shortness Verified 07/22/18 14:40 of Breath potassium iodide Allergy Unknown Shortness Verified 07/22/18 14:40 of Breath povidone-iodine Allergy Unknown Shortness Verified 07/22/18 14:40 of Breath sodium iodide Allergy Unknown Shortness Verified 07/22/18 14:40 of Breath sodium iodide Allergy Unknown Shortness Verified 07/22/18 14:40 of Breath prednisone AdvReac Severe ANXIETY Verified 07/22/18 14:40 ANTIDEPRESSANTS AdvReac Unknown Depression Uncoded 07/21/18 09:48 Home Medications Medication Instructions Recorded Confirmed Type amlodipine 5 mg PO DAILY 07/22/18 07/22/18 History cholecalciferol (vitamin D3) 2,000 unit PO DAILY 07/22/18 07/22/18 History [Vitamin D3] clopidogrel [Plavix] 75 mg PO DAILY 07/22/18 07/22/18 History furosemide 20 mg PO DAILY PRN 07/22/18 07/22/18 History lansoprazole 15 mg PO DAILY 07/22/18 07/22/18 History levothyroxine [Synthroid] 100 mcg PO DAILY 07/22/18 07/22/18 History lorazepam 2 mg PO HS 07/22/18 07/22/18 History metoprolol tartrate 75 mg PO BID 07/22/18 07/22/18 History multivitamin [Multiple Vitamins] 1 tab PO DAILY 07/22/18 07/22/18 History potassium chloride [Klor-Con 10] 10 meq PO DAILY 07/22/18 07/22/18 History Exam Vital signs: Vital Signs 07/22/18 13:38 07/22/18 14:26 07/22/18 14:27 Temperature 98.7 F Pulse Rate 74 70 Respiratory Rate 18 Blood Pressure 167/88 H Pulse Oximetry 95 98 Intake & Output 07/21/18 07/22/18 07/22/18 18:59 06:59 18:59 Weight 71.5 kg Narrative: General patient in no acute distress HEENT extraocular movements are intact, clear oropharyngeal mucosa, no JVD Cardiovascular S1-S2 audible, RRR, no murmurs rubs or gallops Respiratory clear to auscultation bilaterally Abdomen soft, nontender, nondistended, normal bowel sounds Extremities no edema 2+ distal pulses in bilateral upper and lower extremities Neuro cranial nerves II through XII intact. Patient was all 4 extremities, sensation is intact bilaterally Results - Labs CBC & Chem 7: 07/22/18 13:20 07/22/18 13:20 Labs: Short CBC 07/22/18 Range/Units 13:20 WBC 7.8 (4.0-11.0) th/mm3 Hgb 18.4 H (11.6-15.3) gm/dL Hct 54.6 H (35.0-46.0) % Plt Count 242 (150-450) th/mm3 BMP 07/22/18 13:20 Sodium 139 Potassium 3.7 Chloride 103 Carbon Dioxide 27.2 BUN 16 Creatinine 0.96 Calcium 8.9 Cardiac Enzymes 07/22/18 Range/Units 13:20 Total Creatine Kinase 139 (26-192) U/L Troponin I 0.03 (0.02-0.05) ng/mL Urine 07/22/18 Range/Units 14:30 Urine Color Yellow (Yellw/Straw) Urine Clarity Clear (Clear) Urine pH 7.0 (5.0-8.5) Ur Specific [place] 1.010 (1.002-1.035) Urine Protein Negative (Neg-Trace) mg/dL Urine Glucose (UA) Negative (Negative) mg/dL - Imaging Impressions Chest X-Ray 07/22/18 13:42 CONCLUSION: Chronic appearing interstitial changes in the pulmonary parenchyma. No acute abnormality identified. Head CT 07/22/18 13:42 CONCLUSION: 1. No acute intracranial abnormality identified. Report was called by [Dr. Leon Frias to Dr. Heath at 1:59 PM ] Caprini VTE Risk Assessment Caprini VTE Risk Assessment: Moderate/High Risk (score >= 2) Caprini Risk Assessment Model: Point Value = 1 Point Value = 2 Point Value = 3 Point Value = 5 Age 41-60 Minor surgery BMI > 25 kg/m2 Swollen legs Varicose veins or History of unexplained or recurrent spontaneous Oral contraceptives or hormone replacement Sepsis (< 1 month) Serious lung disease, including pneumonia (< 1 month) Abnormal pulmonary function Acute myocardial infarction Congestive heart failure (< 1 month) History of inflammatory bowel disease Medical patient at bed rest Age 61-74 Arthroscopic surgery Major open surgery (> 45 min) Laparoscopic surgery (> 45 min) Malignancy Confined to bed (> 72 hours) Immobilizing plaster cast Central venous access Age >= 75 History of VTE Family history of VTE Factor V Leiden Prothrombin [id number] Lupus anticoagulant Anticardiolipin antibodies Elevated serum homocysteine Heparin-induced thrombocytopenia Other congenital or acquired thrombophilia Stroke (< 1 month) Elective arthroplasty Hip, pelvis, or leg fracture Acute spinal cord injury (< 1 month) Prophylaxis Regimen: Total Risk Factor Score Risk Level Prophylaxis Regimen 0-1 Low Early ambulation 2 Moderate Order ONE of the following: *Sequential Compression Device (SCD) *Heparin 5000 units SQ BID 3-4 Higher Order ONE of the following medications: *Heparin 5000 units SQ TID *Enoxaparin/Lovenox 40 mg SQ daily (WT < 150 kg, CrCl > 30 mL/min) *Enoxaparin/Lovenox 30 mg SQ daily (WT < 150 kg, CrCl > 10-29 mL/min) *Enoxaparin/Lovenox 30 mg SQ BID (WT < 150 kg, CrCl > 30 mL/min) AND/OR *Sequential Compression Device (SCD) 5 or more Highest Order ONE of the following medications: *Heparin 5000 units SQ TID (Preferred with Epidurals) *Enoxaparin/Lovenox 40 mg SQ daily (WT < 150 kg, CrCl > 30 mL/min) *Enoxaparin/Lovenox 30 mg SQ daily (WT < 150 kg, CrCl > 10-29 mL/min) *Enoxaparin/Lovenox 30 mg SQ BID (WT < 150 kg, CrCl > 30 mL/min) AND *Sequential Compression Device (SCD) Assessment and Plan - Plan This patient is an 88-year-old female with a diagnosis of coronary artery disease history of multiple stents in the past last one in 2014, hypertension, dyslipidemia, as per the patient she has a history of atrial fibrillation and was previously on Eliquis. The patient presents our facility this morning after she was found to have dysarthria as well as left-sided facial tingling. She also states she had some weakness of her left upper and left lower extremity. 1. TIA 2. Paroxysmal atrial fibrillation The patient symptoms have resolved completely. EKG shows normal sinus rhythm, no acute ST or T wave changes Patient currently takes Plavix at home, aspirin will be added to the patient's medication regimen. Neurology evaluated the patient and recommends MRI and MRA of the head. Ultrasound of the carotids will also be done. We will follow-up the imaging studies. The patient has a history of atrial fibrillation and is at high risk of recurrent stroke. I discussed the case with the patient as well as her son who is a physician in [place]. They are not sure why her anticoagulation was stopped in the past. I will discussed the case with neurology today regarding anticoagulation as the patient will likely benefit starting an anticoagulant. 3. Hypertension We will allow for permissive hypertension for 24 hours. Her current blood pressure is systolic 160s. 4. Coronary artery disease Continue aspirin, statin, Plavix. Lovenox for DVT prophylaxis.
[2018-07-22 14:57] LABS: Amphetamine Screen,Urine Neg (Neg)
[2018-07-22 15:06] LABS: Barbiturate Screen,Urine Neg (Neg)
[2018-07-22 15:08] LABS: Cannabinoid Screen,Urine Neg (Neg)
[2018-07-22 15:09] LABS: Cocaine Screen,Urine Neg (Neg)
[2018-07-22 15:11] LABS: Opiate Screen,Urine Neg (Neg)
--- NOTE | 2018-07-22 15:56 | US ---
EXAM DATE: 07/22/2018 3:52 PM EST AGE/SEX: 88 years / Female INDICATIONS: TIA. CLINICAL DATA: This is the patient's initial encounter. Patient reports that signs and symptoms have been present for 1 day and indicates a pain score of 0/10. MEDICAL/SURGICAL HISTORY: Arthritis. Cardiovascular disease. Congestive heart failure. Cheo gian's thyroiditis. Hypertension. Atrial fibrillation. Coronary artery stent. Angioplasty. COMPARISON: No prior exams available for comparison. VELOCITY PARAMETERS: ICA/CCA Ratio: Right 1.4 , Left 0.8 ICA: Right 88 cm/sec, Left 57 cm/sec CCA: Right 64 cm/sec, Left 74 cm/sec ECA: Right 62 cm/sec, Left 55 cm/sec Vertebral: Right 26 cm/sec antegrade, Left 50 cm/sec antegrade FINDINGS: Right Carotid: Mild arteriosclerotic plaque is visualized.The waveforms are within normal limits. Left Carotid: Mild arteriosclerotic plaque is visualized. The waveforms are within normal limits. Other: None. CONCLUSION: 1. Right Internal Carotid Artery: No significant stenosis or atherosclerotic plaque is visualized. 2. Left Internal Carotid Artery: No significant stenosis or atherosclerotic plaque is visualized. Electronically signed by: Steven Miranda MD 07/22/2018 3:54 PM EST
--- NOTE | 2018-07-22 16:44 | MR ---
EXAM DATE: 07/22/2018 4:33 PM EST AGE/SEX: 88 years / Female INDICATIONS: . Left facial droop. CLINICAL DATA: This is the patient's initial encounter. Patient reports that signs and symptoms have been present for 1 day and indicates a pain score of 0/10. MEDICAL/SURGICAL HISTORY: Hypertension. AFIB. Coronary artery stent. Cholecystectomy. COMPARISON: [facility], CT HEAD W/O CONTRAST, 07/22/2018. . TECHNIQUE: Multiplanar, multisequence examination of the brain was performed without contrast. FINDINGS: Cerebrum: The ventricles are normal for age. Multiple old tiny lacunar infarcts are noted throughou t the bilateral basal ganglia. No evidence of midline shift, mass lesion, hemorrhage or acute infarct ion. No extraaxial fluid collections are seen. The pituitary gland and suprasellar cistern are norm al in configuration. White Matter: Moderate periventricular and subcortical white matter small vessel ischemic changes ar e noted bilaterally. Posterior Fossa: The cerebellum and brainstem are intact. The 4th ventricle is midline. The cerebel lopontine angle is unremarkable. The cerebellar tonsils are normal in position. Diffusion Imaging: No focal areas of restricted diffusion are seen. No evidence of acute infarction . Extracranial: The visualized portions of the orbits and paranasal sinuses are unremarkable. CONCLUSION: 1. Moderate periventricular and subcortical white matter small vessel ischemic changes are noted kristen aterally. 2. Multiple old tiny lacunar infarcts are noted throughout the bilateral basal ganglia. 3. No acute infarct, acute hemorrhage, midline shift or extra-axial fluid collections. Electronically signed by: Steven Miranda MD 07/22/2018 4:43 PM EST
--- NOTE | 2018-07-22 17:25 | MR ---
EXAM DATE: 07/22/2018 5:03 PM EST AGE/SEX: 88 years / Female INDICATIONS: . Left facial droop. CLINICAL DATA: This is the patient's initial encounter. Patient reports that signs and symptoms have been present for 1 day and indicates a pain score of 0/10. MEDICAL/SURGICAL HISTORY: Hypertension. AFIB. Coronary artery stent. Cholecystectomy. COMPARISON: [facility], MR HEAD W/O CONTRAST, 07/22/2018. [facility], CT HEAD W/O CONTRAST, 07/22/2018. . TECHNIQUE: 3D [id number] MRA was performed. Source images, multiplanar STS MIP, and 3D volum e MIP reconstructions were reviewed. FINDINGS: Moderate focal segmental stenoses are noted involving the middle cerebral arteries bilaterally. The A 1 segments are patent bilaterally. The anterior cerebral arteries are patent proximally. The upper ce rvical, petrous, cavernous and supraclinoid internal carotid arteries are patent without significant stenosis or occlusion. The uppermost portions of the vertebral arteries are patent. The basilar arter y is patent. The posterior cerebral arteries are patent bilaterally. Mild focal stenosis is noted inv olving the left mid posterior cerebral artery. No aneurysm formation is noted. CONCLUSION: 1. Multiple moderate focal segmental stenoses involving the middle cerebral arteries bilaterally. 2. Mild focal stenosis involving the left mid posterior cerebral artery. 3. No significant stenosis or occlusion. Electronically signed by: Steven Miranda MD 07/22/2018 5:23 PM EST
--- NOTE | 2018-07-22 17:28 | MB ---
cc: Kemar Steele MD, PhD DATE: 07/22/2018 TELENEUROLOGY CONSULT HISTORY OF PRESENT ILLNESS: Ms. Dunn is an 88-year-old woman who presented to the emergency room at [facility] as a stroke alert. Shortly before presentation, she noted the abrupt onset of left facial droop, as well as slurring of her speech. She presented to the ER. By the time she was evaluated in the ER after presenting immediately, she was noted to have an NIH stroke scale of 0. The facial droop had resolved, and the speech had returned to normal. PAST MEDICAL HISTORY: She has a history of atrial fibrillation, arthritis, coronary artery disease, congestive heart failure, Paola's thyroiditis, hypertension and sleep apnea. MEDICATIONS AT HOME: Include Plavix 75 mg daily. She was on aspirin, but is not currently on aspirin. NEUROLOGIC EXAMINATION: VITAL SIGNS: Her blood pressure is 167/88, pulse 74, respiratory rate is 18, temperature 98.7 degrees Fahrenheit. HIGHER CORTICAL FUNCTIONS: At this time, conducted by Teleneurology: She is alert. She is oriented. Her speech is normal. Cranial nerves 2-12 are normal. There is no longer a facial droop. MOTOR: She has no drift in the upper or lower extremities. Sensory exam intact. DIAGNOSTIC DATA: CT of the brain is normal for age. No acute change identified. No hemorrhage. Her EKG is currently in normal sinus rhythm. LABORATORY DATA: The white count is 7800, hemoglobin 18.4, hematocrit 54.6%, platelets 242,000. PT 10.2, INR 1, aPTT 26.8. Sodium is 139, potassium 3.7, chloride 103, CO2 27.7. The BUN is 16, creatinine 0.96, GFR 55. Urinalysis: The pH is 7, specific gravity 1.010. IMPRESSION: Transient ischemic attack, which is now resolved. NIH stroke scale is 0/10 at the present time serum glucose 102. The patient is not a candidate for TPA because of the complete resolution of symptoms. Given the NIH stroke scale of 0. She is not an intervention candidate, therefore will not perform CTA routinely. RECOMMENDATION: 1. At the present time, she is in normal sinus rhythm, so would recommend keeping her on Plavix 75 mg daily, adding an aspirin 325 mg daily to the Plavix. 2. Further evaluation with an MRI and MRA brain, carotid ultrasound, echocardiogram, lipid panel. Continue to monitor the cardiac telemetry. Recommend that she be at bed rest with head of bed flat for 12 hours. 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 If she had that, would need to at that point consider anticoagulation; however, at the present time, continue dual antiplatelet therapy, since she is in normal sinus rhythm. Kemar Steele MD, PhD PROSPER/alice , 02:55 PM , 03:06 PM
[2018-07-22 17:37] LABS: Chol/HDL Ratio 3.89 Ratio; HDL Cholesterol 59.1 mg/dL (40.0-60.0)
[2018-07-22] MEDS: Metoprolol Tartrate 50 MG Tablet PO SCH (21:49)
[2018-07-23] MEDS: Sod Chloride 0.9% Inj 1,000 ML IV.CONT SCH (05:11)
[2018-07-23 06:24] LABS: Potassium 3.4 meq/L (3.5-5.1)
[2018-07-23 06:28] LABS: Calcium 7.9 mg/dL (8.5-10.1); Carbon Dioxide 26.5 meq/L (21.0-32.0); Magnesium 2.2 mg/dL (1.5-2.5)
[2018-07-23] MEDS: Metoprolol Tartrate 50 MG Tablet PO SCH (08:37)
[2018-07-23] MEDS: Enoxaparin Inj 40 MG/0.4 ML Syringe SQ SCH ×2 (08:38→17:35)
--- NOTE | 2018-07-23 09:08 | P.PNIM ---
Subjective Interval history: Patient is in no acute distress. She says she feels excellent today. No complaints from the patient this morning. Physical Exam Vital signs: Vital Signs 07/22/18 13:38 07/22/18 14:26 07/22/18 14:27 Temperature 98.7 F Pulse Rate 74 70 Respiratory Rate 18 Blood Pressure 167/88 H Pulse Oximetry 95 98 07/22/18 15:15 07/22/18 16:00 07/22/18 20:00 Temperature 97.6 F 97.8 F Pulse Rate 72 69 62 Respiratory Rate 18 16 18 Blood Pressure 172/90 H 178/89 H 177/79 H Pulse Oximetry 98 92 L 94 L 07/23/18 00:00 07/23/18 04:00 Temperature 97.5 F L 97.7 F Pulse Rate 74 71 Respiratory Rate 18 18 Blood Pressure 180/66 H 142/66 H Pulse Oximetry 96 95 Intake & Output 07/22/18 07/23/18 07/23/18 18:59 06:59 18:59 Intake Total 70 / 70 500 / 500 Output Total 840 / 840 Balance 70 / 70 -340 / -340 Weight 71.5 kg 74.8 kg Intake: IV 70 / 70 500 / 500 NS Inj 1,000 ML @ 70 mls/hr IV. 70 / 70 500 / 500 CONT .[id number] [facility] Rx#: [id number] Oral 0 / 0 Output: Urine 840 / 840 Other: # Urine Diapers 1 Narrative: General patient in no acute distress HEENT extraocular movements are intact, clear oropharyngeal mucosa, no JVD Cardiovascular S1-S2 audible, RRR, no murmurs rubs or gallops Respiratory clear to auscultation bilaterally Abdomen soft, nontender, nondistended, normal bowel sounds Extremities no edema 2+ distal pulses in bilateral upper and lower extremities Neuro cranial nerves II through XII intact Results - Labs CBC & Chem 7: 07/22/18 13:20 07/23/18 05:15 Laboratory Results - last 24 hr 07/22/18 07/22/18 07/22/18 13:20 13:20 13:20 CBC w Diff Auto diff final WBC 7.8 RBC 5.89 H Hgb 18.4 H Hct 54.6 H MCV 92.7 MCH 31.2 MCHC 33.7 RDW 12.7 Plt Count 242 MPV 8.3 Neut % (Auto) 56.6 Lymph % (Auto) 31.1 [place] % (Auto) 10.3 H Eos % (Auto) 1.6 Baso % (Auto) 0.4 Neut # (Auto) 4.5 Lymph # (Auto) 2.4 [place] # (Auto) 0.8 Eos # (Auto) 0.1 Baso # (Auto) 0.0 WBC Differential . Differential Comment . PT 10.2 INR 1.0 APTT 26.8 Fibrinogen 291 Sodium 139 Potassium 3.7 Chloride 103 Carbon Dioxide 27.2 Anion Gap 9 BUN 16 Creatinine 0.96 Estimated GFR 55 L Random Glucose 102 Calcium 8.9 Magnesium Total Creatine Kinase Troponin I Triglycerides Cholesterol LDL Cholesterol, Calc HDL Cholesterol Cholesterol/HDL Ratio Beta HCG, Quant Urine Color Urine Clarity Urine pH Ur Specific [place] Urine Protein Urine Glucose (UA) Urine Ketones Urine Occult Blood Urine Nitrate Urine Bilirubin Urine Urobilinogen Ur Leukocyte Esterase Urine WBC Urine Mucus Micro UA Comment Ur Microscopic Review Urine Culture Comments Urine Opiates Screen Ur Barbiturates Screen Ur Amphetamines Screen U Benzodiazepines Scrn Urine Cocaine Screen U Cannabinoids Screen Blood Type Blood Type Recheck Antibody Screen 07/22/18 07/22/18 07/22/18 13:20 13:20 13:48 CBC w Diff WBC RBC Hgb Hct MCV MCH MCHC RDW Plt Count MPV Neut % (Auto) Lymph % (Auto) [place] % (Auto) Eos % (Auto) Baso % (Auto) Neut # (Auto) Lymph # (Auto) [place] # (Auto) Eos # (Auto) Baso # (Auto) WBC Differential Differential Comment PT INR APTT Fibrinogen Sodium Potassium Chloride Carbon Dioxide Anion Gap BUN Creatinine Estimated GFR Random Glucose Calcium Magnesium Total Creatine Kinase 139 Troponin I 0.03 Triglycerides 295 H Cholesterol 230 H LDL Cholesterol, Calc 112 H HDL Cholesterol 59.1 Cholesterol/HDL Ratio 3.89 Beta HCG, Quant 6 H Urine Color Urine Clarity Urine pH Ur Specific [place] Urine Protein Urine Glucose (UA) Urine Ketones Urine Occult Blood Urine Nitrate Urine Bilirubin Urine Urobilinogen Ur Leukocyte Esterase Urine WBC Urine Mucus Micro UA Comment Ur Microscopic Review Urine Culture Comments Urine Opiates Screen Ur Barbiturates Screen Ur Amphetamines Screen U Benzodiazepines Scrn Urine Cocaine Screen U Cannabinoids Screen Blood Type A Negative Blood Type Recheck Required Antibody Screen Negative 07/22/18 07/22/18 07/22/18 14:30 14:30 16:50 CBC w Diff WBC RBC Hgb Hct MCV MCH MCHC RDW Plt Count MPV Neut % (Auto) Lymph % (Auto) [place] % (Auto) Eos % (Auto) Baso % (Auto) Neut # (Auto) Lymph # (Auto) [place] # (Auto) Eos # (Auto) Baso # (Auto) WBC Differential Differential Comment PT INR APTT Fibrinogen Sodium Potassium Chloride Carbon Dioxide Anion Gap BUN Creatinine Estimated GFR Random Glucose Calcium Magnesium Total Creatine Kinase Troponin I 0.04 Triglycerides Cholesterol LDL Cholesterol, Calc HDL Cholesterol Cholesterol/HDL Ratio Beta HCG, Quant Urine Color Yellow Urine Clarity Clear Urine pH 7.0 Ur Specific [place] 1.010 Urine Protein Negative Urine Glucose (UA) Negative Urine Ketones Negative Urine Occult Blood Negative Urine Nitrate Negative Urine Bilirubin Negative Urine Urobilinogen 0.2 Ur Leukocyte Esterase Negative Urine WBC 0-5 Urine Mucus Rare H Micro UA Comment Cath-culture not ind Ur Microscopic Review Microscopic reviewed Urine Culture Comments Cath-cult not ind Urine Opiates Screen Neg Ur Barbiturates Screen Neg Ur Amphetamines Screen Neg U Benzodiazepines Scrn Neg Urine Cocaine Screen Neg U Cannabinoids Screen Neg Blood Type Blood Type Recheck Antibody Screen 07/23/18 05:15 CBC w Diff WBC RBC Hgb Hct MCV MCH MCHC RDW Plt Count MPV Neut % (Auto) Lymph % (Auto) [place] % (Auto) Eos % (Auto) Baso % (Auto) Neut # (Auto) Lymph # (Auto) [place] # (Auto) Eos # (Auto) Baso # (Auto) WBC Differential Differential Comment PT INR APTT Fibrinogen Sodium 143 Potassium 3.4 L Chloride 108 H Carbon Dioxide 26.5 Anion Gap 9 BUN 11 Creatinine 0.73 Estimated GFR 75 L Random Glucose 98 Calcium 7.9 L D Magnesium 2.2 Total Creatine Kinase Troponin I Triglycerides Cholesterol LDL Cholesterol, Calc HDL Cholesterol Cholesterol/HDL Ratio Beta HCG, Quant Urine Color Urine Clarity Urine pH Ur Specific [place] Urine Protein Urine Glucose (UA) Urine Ketones Urine Occult Blood Urine Nitrate Urine Bilirubin Urine Urobilinogen Ur Leukocyte Esterase Urine WBC Urine Mucus Micro UA Comment Ur Microscopic Review Urine Culture Comments Urine Opiates Screen Ur Barbiturates Screen Ur Amphetamines Screen U Benzodiazepines Scrn Urine Cocaine Screen U Cannabinoids Screen Blood Type Blood Type Recheck Antibody Screen - Imaging Impressions Chest X-Ray 07/22/18 13:42 CONCLUSION: Chronic appearing interstitial changes in the pulmonary parenchyma. No acute abnormality identified. Head CT 07/22/18 13:42 CONCLUSION: 1. No acute intracranial abnormality identified. Report was called by [Dr. Leon Frias to Dr. Heath at 1:59 PM ] Carotid Doppler Study 07/22/18 14:17 CONCLUSION: 1. Right Internal Carotid Artery: No significant stenosis or atherosclerotic plaque is visualized. 2. Left Internal Carotid Artery: No significant stenosis or atherosclerotic plaque is visualized. Head MRI 07/22/18 14:17 CONCLUSION: 1. Moderate periventricular and subcortical white matter small vessel ischemic changes are noted bilaterally. 2. Multiple old tiny lacunar infarcts are noted throughout the bilateral basal ganglia. 3. No acute infarct, acute hemorrhage, midline shift or extra-axial fluid collections. Head MRA 07/22/18 14:17 CONCLUSION: 1. Multiple moderate focal segmental stenoses involving the middle cerebral arteries bilaterally. 2. Mild focal stenosis involving the left mid posterior cerebral artery. 3. No significant stenosis or occlusion. Assessment and Plan - Plan This patient is an 88-year-old female with a diagnosis of coronary artery disease history of multiple stents in the past last one in 2014, hypertension, dyslipidemia, as per the patient she has a history of atrial fibrillation and was previously on Eliquis. The patient presents our facility this morning after she was found to have dysarthria as well as left-sided facial tingling. She also states she had some weakness of her left upper and left lower extremity. 1. TIA 2. Paroxysmal atrial fibrillation The patient symptoms have resolved completely. EKG shows normal sinus rhythm, no acute ST or T wave changes Patient currently takes Plavix at home, aspirin will be added to the patient's medication regimen. Ultrasound of the carotids did not show any significant stenosis. MRA showed multiple moderate focal segmental stenosis involving the middle cerebral arteries bilaterally, and the left mid posterior cerebral artery. MRI of the head showed multiple old tiny lacunar infarcts bilaterally. 2D echocardiogram did not show any significant abnormalities. The patient has a history of atrial fibrillation and is at high risk of recurrent stroke. I discussed the case with the patient as well as her son who is a physician in [place]. Case was discussed with neurology and recommends starting the patient on anticoagulation. She will be started on Eliquis today. Patient has a history of coronary artery disease with multiple stents in the past. I recommend that she follows up with cardiology within 1 week to see if the patient needs to be continued on Plavix. Patient was evaluated by physical therapy, recommend agents are to continue to use a four-wheel walker when ambulating which she has at home. Patient says she does not want to be started on a statin as she has had side effects in the past from it. Patient will be discharged home today, she was advised to follow-up with her primary care doctor within 1 week. She should also be evaluated by cardiology in 1 week. Patient should also follow-up with neurology outpatient in the next 1-2 weeks. 3. Hypertension Patient will be continued on her home medications for blood pressure and rate control. 4. Coronary artery disease Continue aspirin, Plavix, beta-wendy
--- NOTE | 2018-07-23 09:26 | MB ---
cc: Kemar Steele MD, PhD DATE: 07/23/2018 REASON FOR CONSULTATION: Stroke. HISTORY OF PRESENT ILLNESS: Ms. Dunn is a very nice 88-year-old woman who presented to the emergency room yesterday with the acute onset of slurring of her speech and left facial droop. She was evaluated by myself via the tele-neurology system for rapid evaluation. At that time, her symptoms had completely resolved. She had an NIH stroke scale of 0; therefore, was not a candidate for IV TPA. Serum glucose was normal at 102. In the interim, the patient has remained within normal limits. Has had no recurrent slurred speech. No focal weakness. No facial droop. PAST MEDICAL HISTORY: She has a history of intermittent atrial fibrillation. History of coronary artery disease with multiple stents, last done in 2014. She was on Eliquis in the past, but was taken off of this for unknown reason. She states she did not have any problems with it. Currently takes Plavix. She has a history of coronary artery disease, cholecystectomy, congestive heart failure, Paola thyroiditis, hypertension, sleep apnea. MEDICATIONS AT HOME: 1. Amlodipine 5 mg daily. 2. Vitamin D3. 3. Plavix 75 mg daily. 4. Lasix 20 mg daily. 5. Lansoprazole 15 mg daily. 6. Synthroid 100 mcg daily. 7. Lorazepam 2 mg at bedtime. 8. Metoprolol 75 mg b.i.d. 9. Multivitamin. 10. Potassium chloride 10 mEq daily. SOCIAL HISTORY: Denies tobacco use currently, used to smoke in the past. NEUROLOGICAL EXAMINATION: VITAL SIGNS: Her blood pressure is currently 142/66, pulse 71 and regular. Currently in normal sinus rhythm, respirations 18, temperature 97 degrees. NEUROLOGIC: Higher cortical functions are normal, including speech. Cranial nerves are intact. There is no longer any facial droop. Motor exam reveals normal strength and tone of all groups. Normal reflexes. Cerebellar testing, no dysmetria. IMAGING STUDIES: CT of the brain done yesterday is unremarkable for any acute change. She had an MRI of the brain done as well showing no acute infarction. There are multiple old tiny lacunar infarctions in bilateral basal ganglia, moderate periventricular ischemic demyelinization is identified. MR angiogram of the brain shows multiple moderate focal segmental stenoses of the middle cerebral arteries bilaterally, as well as the left mid posterior cerebral artery. No significant stenosis or occlusion is identified. A carotid ultrasound shows no significant carotid artery stenosis bilaterally. Echocardiogram pending. EKG normal sinus rhythm. LABORATORY DATA: Sodium is 143, potassium 3.4, chloride 108, CO2 of 26.2, the BUN is 11, creatinine 0.73, GFR is 75, glucose is 98, CPK 139. Cholesterol 230, LDL 112, HDL 59. White count 7800, hemoglobin 18.4, hematocrit 54%, platelets 242,000. PT 10.2, INR 1, aPTT 26.8. IMPRESSION: Transient ischemic attack, now resolved as noted above. She was not a TPA candidate due to complete resolution of symptoms. She was not a candidate for consideration for intervention due to resolution of symptoms. She has a history of paroxysmal atrial fibrillation, currently in sinus rhythm. I would recommend resuming Eliquis. For now, would continue her on Plavix, but would recommend cardiology evaluation to determine whether she needs to stay on Plavix because of her cardiac stents. If not, then I would recommend continuing only Eliquis. Would also recommend statin therapy. If the echocardiogram is unremarkable, the patient is stable from the neurology standpoint for discharge on Eliquis to follow up as an outpatient with cardiology. Thank you for asking me to see this nice patient in consultation. Kemar Steele MD, PhD PROSPER/rosalia , 09:03 AM , 09:12 AM
[2018-07-23 10:16] VITALS: RESP 20
--- NOTE | 2018-07-23 12:43 | ECG ---
Date Performed: 07/22/2018 Time Performed: 14:12:11 PTAGE: 88 years EKG: Sinus rhythm WITH OCCASIONAL VENTRICULAR PREMATURE COMPLEXES NONSPECIFIC ST & T-WAVE ABNORMALITY BORDERLINE ECG PREVIOUS TRACING : 11/21/2016 15.26 DOCTOR: Hemant Fernandez Interpretating Date/Time 07/23/2018 12:41:17
[2018-07-23 16:37] VITALS: BP 142/78
[2018-07-23 17:35] VITALS: TEMP 97.8; O2SAT 91
--- NOTE | 2018-07-23 17:51 | ECHRPT ---
Indication: CVA/TIA CONCLUSIONS The left ventricular systolic function is normal with an estimated ejection fraction in the range of 55-60%. Doppler parameters are consistent with impaired left ventricular relaxtion (grade 1 diastolic dysfun ction). Trace mitral valve regurgitation. Mild aortic valve regurgitation. There is trace tricuspid valve regurgitation. Trivial pulmonary valve regurgitation. BP: / HR: Rhythm: MEASUREMENTS (Male / Female) Normal Values Technical Quality: 2D ECHO LV Diastolic Diameter PLAX 3.5 cm 4.2 - 5.9 / 3.9 - 5.3 cm LV Systolic Diameter PLAX 2.7 cm IVS Diastolic Thickness 1.2 cm 0.6 - 1.0 / 0.6 - 0.9 cm LVPW Diastolic Thickness 1.1 cm 0.6 - 1.0 / 0.6 - 0.9 cm LV Relative Wall Thickness 0.7 LVOT Diameter 1.9 cm LV Ejection Fraction MOD 4C 56.3 % LV Ejection Fraction 4C AL 59.2 % M-MODE Aortic Root Diameter MM 2.0 cm LA Systolic Diameter MM 2.9 cm LA Ao Ratio MM 1.5 AV Cusp Separation MM 1.5 cm DOPPLER AV Peak Velocity 205.0 cm/s AV Peak Gradient 16.8 mmHg AV Mean Gradient 7.0 mmHg AV Velocity Time Integral 38.2 cm AI Peak Velocity 351.5 cm/s AI Peak Gradient 49.4 mmHg AI Pressure Half Time 401.0 ms LVOT Peak Velocity 102.0 cm/s LVOT Peak Gradient 4.2 mmHg LVOT Velocity Time Integral 21.4 cm AV Area Cont Eq vti 1.6 cm AV Area Cont Eq pk 1.4 cm MV Area PHT 4.5 cm Mitral E Point Velocity 66.1 cm/s Mitral A Point Velocity 107.0 cm/s Mitral E to A Ratio 0.6 LV E' Lateral Velocity 5.4 cm/s Mitral E to LV E' Lateral Ratio 12.3 LV E' Septal Velocity 4.5 cm/s Mitral E to LV E' Septal Ratio 14.8 TR Peak Velocity 267.0 cm/s TR Peak Gradient 28.5 mmHg Right Atrial Pressure 10.0 mmHg Pulmonary Artery Systolic Pressu 38.5 mmHg Right Ventricular Systolic Press 38.5 mmHg PV Peak Velocity 97.7 cm/s PV Peak Gradient 3.8 mmHg FINDINGS LEFT VENTRICLE The left ventricular systolic function is normal with an estimated ejection fraction in the range of 55-60%. Normal left ventricular size. Wall thickness is normal. No regional wall motion abnormalities are present. Nonobstructive prominent basal hypertrophy is present consistent with sigmoid septum. Doppler parameters are consistent with impaired left ventricular relaxtion (grade 1 diastolic dysfun ction). RIGHT VENTRICLE Normal right ventricular size and systolic function. LEFT ATRIUM The left atrial size is normal. RIGHT ATRIUM The right atrial size is normal. ATRIAL SEPTUM Normal atrial septal thickness without atrial level shunting by limited color doppler interrogation. AORTA The aortic root and proximal ascending aorta are normal in size on limited imaging. MITRAL VALVE Structurally normal mitral valve. Mitral annular calcification is present. Trace mitral valve regurgitation. No mitral valve stenosis. AORTIC VALVE Trileaflet aortic valve. Diffuse calcification of the aortic valve. Mild aortic valve regurgitation. No aortic valve stenosis. TRICUSPID VALVE Mild thickening of the tricuspid valve leaflets. There is trace tricuspid valve regurgitation. The estimated pulmonary arterial pressure is 38.5 mmHg. PULMONARY VALVE Trivial pulmonary valve regurgitation. VESSELS The inferior vena cava is normal in size. PERICARDIUM No pericardial effusion. Moreno Lopez DO (Electronically Signed) Final Date:23 July 2018 17:50
[2018-07-23 18:13] VITALS: PULSE 80
== END 2018-07-23 18:33 | disposition home or self-care (01) ==
LOC: PHEDA 13:38 → PHED 13:38 → PH3 16:25
PROVIDERS: ADMIT Hospitalist; ATTEND Hospitalist